=== PATIENT | male | born 1960 | race Caucasian/White ===

== ENCOUNTER 2024-10-26 10:49 | Outpatient (REF) | payer OTHER, SELFPAY ==
--- OUTSIDE RECORDS SUMMARY | 2024-10-27 12:09 | XMS_ITS | Clinical Summary ---
Author Organization [address] [facility] Address [address] [place] [address] Phone Care Team Providers Care Light Bulb Tester Name Role Phone Jamie Munguia MD Primary Care Provider [phone] Allergies Active Allergy Reactions Criticality Noted Date Comments Codeine Rash High 02/01/2019 Other Reaction(s): ITCHING AND CHEST TIGHTNESS Medications acetaminophen (TYLENOL 8 HOUR) 650 mg 8 hr tablet Take 1 Tablet by mouth 3 times daily as needed for Pain. 03/02/20 24 Active fluticasone propionate (FLONASE) 50 mcg/actuation nasal spray 1 [place] by Nasal route 2 times daily. 08/29/19 24 Active cetirizine (ZyrTEC) 10 mg tablet Take 1 Tablet by mouth at bedtime. 08/29/19 24 Active triamcinolone (KENALOG) 0.1 % cream Apply 1 Applicator topically 2 times daily. 08/29/19 24 Active cyclobenzaprine (FLEXERIL) 10 mg tablet Take 1 tablet (10 mg total) by mouth at bedtime as needed for muscle spasms. 30 tablet 2 07/27/19 25 Active gabapentin (NEURONTIN) 100 mg capsule Take 1 capsule (100 mg total) by mouth 2 (two) times a day. 60 capsule 3 07/27/19 25 Active Additional Information Patient not taking.Reported on 08/27/2024 fluticasone furoate-vilanteroL (BREO ELLIPTA) 100-25 mcg/dose inhaler Inhale 1 puff by mouth 1 (one) time each day. 1 each 3 07/27/19 25 Active albuterol HFA (PROAIR HFA ; PROVENTIL HFA ; VENTOLIN HFA) 90 mcg/actuation inhalerIndications :Mild persistent asthma without complication Inhale 2 puffs by mouth every 4 (four) hours if needed for wheezing. 6.7 g 3 07/27/19 25 Active oxyCODONE (ROXICODONE) 5 mg immediate release tabletIndications: Osteoarthritis of right hip, unspecified osteoarthritis type Take 1 tablet (5 mg total) by mouth 1 (one) time each day if needed for severe pain. Max Daily Amount: 5 mg 14 tablet 07/27/19 25 Active Additional Information Patient not taking.Reported on 08/27/2024 Active Problems Problem Noted Date Diagnosed Date Eczema 08/29/2023 Mild persistent asthma 08/29/2023 Seasonal allergic rhinitis 08/29/2023 Benign prostatic hyperplasia 01/23/2023 Mixed hyperlipidemia 01/23/2023 Obesity (BMI 30-39.9) 08/09/2019 Prediabetes 08/09/2019 Chronic pain of right knee 02/01/2019 Lumbar spondylosis 02/01/2019 Overview (04/09/2024): and mild spondylolisthesis L5-S1 Reactive airway disease 02/01/2019 Overview (04/09/2024): He notes pneumonia ~2015, notes he is susceptible to pneumonia, bronchitis Trochanteric bursitis, right hip 02/01/2019 Overview (04/09/2024): Dr Roque at [facility], bursal injection December 2016 Encounters Date Type Department Care Team Description 09/20/2024 Telephone Adult Medicine [address] [phone] Jamie Munguia MD office notes 08/27/2024 9:30 AM EST Office Visit Adult Medicine [address] [phone] Niki Cummings PA Osteoarthritis of right hip, unspecified osteoarthritis type (Primary Dx) from Last 3 Months Immunizations Name Administration Dates Next Due Influenza trivalent, 0.5mL, preservative free (Fluarix; FluLaval; Fluzone) ages 6mo and older (Afluria) 3 years and older 07/23/2019,03/25/2018 Pneumococcal polysaccharide 23 valent (Pneumovax 23) 2yo and older 08/09/2019 Tdap Tetanus diptheria acell ular pertussis (Boostrix; Adacel) 7yo and older 10/11/2022,09/25/2011 Surgical History Surgery Date Site/Laterality Comments KNEE SURGERY 01/01/2017 Right PROCEDURE: HISTORICAL KNEE SURGERY; COMMENT: arthroscopy; 2010 lateral meniscectomy, notse twice HERNIA REPAIR 2005 PROCEDURE: HISTORICAL HERNIA REPAIR/ING OTHER SURGICAL HISTORY PROCEDURE: HISTORY OTHER; COMMENT: cyst removal-left proximal forearm OTHER SURGICAL HISTORY 09/04/2018 PROCEDURE: HISTORY OTHER; COMMENT: benign lesion, over 4.0cm, lipoma Medical History Medical History Date Comments Depression, major, recurrent (CMS/HCC V24) 02/01/2019 DX:Depression, major, recurr ent ([facility]) Reactive airway disease 02/01/2019 DX:React tao airway disease Chronic pain of right knee 02/01/2019 DX:Ch ronic pain of right knee Trochanteric bursitis, right hip 02/01/2019 DX:Trochanteric bursitis, right hip; COMMENT: 09/2018 Lumbar spondylosis 02/01/2019 DX:Lumbar spo ndylosis; COMMENT: and mild spondylolisthesis L5-S1 BPH (benign prostatic hyperplasia) DX:BPH (benign prostatic hyperplasia) Family History Medical History Relation Name Comments Coronary artery disease Brother 1 1/2 bro Diabetes Brother 1 1/2 bro No Known Problems Brother 2 Blindness Father d/t brain tumor Coronary artery disease Maternal Grandfather s/p CABG No Known Problems Maternal Grandmother No Known Problems Mother Depression Sister 1/2 sis No Known Problems Son 1 No Known Problems Son 2 Relation Name Status Comments Brother 1 1/2 bro Alive Brother 2 Alive Father Alive Maternal Grandfather Maternal Grandmother Alive Mother Alive Sister 1/2 sis Alive Son 1 Alive Son 2 Alive Social History Tobacco Use Types Packs/Day Years Used Date Smoking Tobacco: Former Smokeless Tobacco: Never Tobacco Cessation:Counseling Given: Not Answered Alcohol Use Standard Drinks/Week Comments Yes 0 (1 standard drink = 0.6 oz pur e alcohol) Sex and Gender Information Value Date Recorded Sex Assigned at Not on file Legal Sex Male 7:02 PM EST Gender Identity Not on file Sexual Orientation Not on file Obstetrics History Last Filed Vital Signs Vital Sign Reading Time Taken Comments Blood Pressure 133/86 08/27/2024 9:28 AM EST Pulse 98 08/27/2024 9:28 AM EST Temperature 36.5 ??C (97.7 ??F) 08/27/2024 9:28 AM ES T Respiratory Rate 16 08/27/2024 9:28 AM EST Oxygen Saturation 94% 07/27/2024 3:39 PM EST Inhaled Oxygen Concentration - - Weight 87.5 kg (193 lb) 08/27/2024 9:28 AM EST Height 167.6 cm (5' 6 ) 08/27/2024 9:28 AM EST Body Mass Index 31.15 08/27/2024 9:28 AM EST Plan of Treatment Upcoming Encounters Date Type Department Care Team (Late st Contact Info) Description 12/27/2024 1:30 PM EDT Office Visit Adult Medicine [address] [phone] Jamie Munguia MD [address] [place] [id number] Health Maintenance Due Date Last Done Comments Zoster Vaccines (1 of 2) 2010 RSV Immunization Adult Patients (1 - Risk 60-74 years 1-dose series) 2020 Pneumococcal Vaccine: 50+ Years (2 of 2 - PCV) 08/09/2020 08/09/2019 Pneumococcal Vaccine: Pediatrics (0 to 5 Years) and At-Risk Patients (6 to 64 Years) (2 of 2 - PCV) 08/09/2020 08/09/2019 Colorectal Cancer Screening: Colonoscopy 06/01/2022 HIV Screening 06/01/2022 Depression Screening 10/12/2023 10/11/2022 COVID-19 Vaccine ( season) 2024 11/17/2020, 10/20/2020 Social Influencers of Health Screening 08/26/2024 08/27/2023 Influenza Vaccine (Season Ended) 2025 03/06/2020, 07/23/2019, 03/25/2018, Additional history exists Cholesterol Screening (Lipid Panel) 03/01/2029 03/01/2024, 03/01/2024 DTaP,Tdap,and Td Vaccines (3 - Td or Tdap) 10/11/2032 10/11/2022, 09/25/2011 Hepatitis C Screening Completed 02/15/2019 HIB Vaccines Aged Out No longer eligi ble based on patient's age to complete this topic HPV Vaccines Aged Out No longer eligi ble based on patient's age to complete this topic Hepatitis A Vaccines Aged Out No long er eligible based on patient's age to complete this topic Hepatitis B Vaccines Aged Out No long er eligible based on patient's age to complete this topic IPV Vaccines Aged Out No longer eligi ble based on patient's age to complete this topic MMR Vaccines Aged Out No longer eligi ble based on patient's age to complete this topic Meningococcal ACWY Vaccine Aged Out N o longer eligible based on patient's age to complete this topic Meningococcal B Vaccine Aged Out No l onger eligible based on patient's age to complete this topic RSV Immunization Patients Under 20 months Aged Out No longer eligible based on patient's age to complete this topic Varicella Vaccines Aged Out No longer eligible based on patient's age to complete this topic Procedures Procedure Name Priority Date/Time Associated Diagnosis Comments LIPID PANEL Routine 03/01/2024 HEPATITIS C SCREENING Routine 02/15/2019 from Last 3 Months or Most Recently Relevant to Health Maintenance Results * (ABNORMAL) Lipid panel (03/01/2024) LDL/HDL Ratio 5(A) 0 - 4 Triglycerides 195(A) 0 - 150 mg/dL Cholesterol 228(A) 0 - 200 mg/dL HDL 45 >=40 mg/dL LDL Cholesterol 144(A) 0 - 100 mg/dL Blood Venous blood specimen / Unknown us Historical Provider LAB BLOOD ORDERABLES Kimberlee l Result * Hepatitis C Screening (02/15/2019) Pathologist [facility] Hepatitis C Screening ABSTRACTED us Historical Provider HEALTH MAINTENANCE Final Result from Last 3 Months or Most Recently Relevant to Health Maintenance Insurance [facility] Care Teams Light Bulb Tester Relationship Specialty Start Date End Date Jamie Munguia MD [address] [place] [address] PCP - General Internal Medicine 12/18/21
--- OUTSIDE RECORDS SUMMARY | 2024-10-27 12:10 | XMS_ITS | Clinical Summary ---
Author Organization [facility] Address [address] [facility] [address] [place], [place] [id number] Phone Care Team Providers Care Traffic Operations Engineer Name Role Phone Jamie Munguia MD Primary Care Provider Allergies Active Allergy Reactions Criticality Noted Date Comments Codeine 01/04/2019 Medications Medication Sig Dispensed Refills Start Date End Date Status albuterol sulfate (PROAIR HFA INHL) Inhale into the lungs. Active Social History Tobacco Use Types Packs/Day Years Used Date Smoking Tobacco: Never Smokeless Tobacco: Never Education Answer Date Recorded Are you interested in more education? Not on amna e 10/18/2022 Are you concerned about learning? Not on file 10/18/2022 No 10/18/2022 No 10/18/2022 Digital Access Answer Date Recorded No 11/16/2022 No 11/16/2022 No 11/16/2022 Reliable internet access at home? Not on file 11/16/2022 Device with a working camera? Not on file Sex and Gender Information Value Date Recorded Sex Assigned at Male 04/06/2024 10:43 AM EDT Gender Identity Male 04/06/2024 10:43 AM EDT Sexual Orientation Straight 04/06/2024 10 :43 AM EDT Last Filed Vital Signs Vital Sign Reading Time Taken Comments Blood Pressure - - Pulse - - Temperature 36.4 ??C (97.6 ??F) 09/25/2020 11:08 AM E DT Respiratory Rate - - Oxygen Saturation - - Inhaled Oxygen Concentration - - Weight 85 kg (187 lb 4.8 oz) 01/04/2019 12:53 PM EDT Height 167.6 cm (5' 6 ) 01/04/2019 12:53 PM EDT Body Mass Index 30.23 01/04/2019 12:53 PM EDT Plan of Treatment Health Maintenance Due Date Last Done Comments LIPID PANEL 1960 DEPRESSION SCREENING 1972 HEPATITIS C SCREENING 1978 HIV ONE-TIME SCREENING (18-6 5 YEARS) 1978 COLOGUARD 2005 COLONOSCOPY 2005 COLORECTAL CANCER SCREENING 2005 FIT TEST 2005 FOBT 2005 SIGMOIDOSCOPY 2005 VIRTUAL COLONOSCOPY 2005 ZOSTER VACCINES (1 of 2) 2010 PNEUMOCOCCAL VACCINES (50+ years) (2 of 2 - PCV) 08/09/2020 08/09/2019 Adult Td,Tdap Booster 09/24/2021 09/25/2011 COVID-19 VACCINE (3 - 2023-2 5 season) 2024 11/17/2020, 10/20/2020 RSV VACCINE (1 - 1-dose 75+ series) 2035 SMOKING STATUS SCREENING (On ce After 26 Yrs) Completed 09/25/2020 HEPATITIS A VACCINES Aged Out No long er eligible based on patient's age to complete this topic HIB VACCINES Aged Out No longer eligi ble based on patient's age to complete this topic MENINGOCOCCAL VACCINES (ACWY) Aged Out No longer eligible based on patient's age to complete this topic Medical Devices Not on file Care Teams Traffic Operations Engineer Relationship Specialty Start Date End Date Jamie Munguia MD PCP - General Internal Medicine 04/06/24 Additional Source Comments The information contained in this document represents components of the legal health record. It is not the complete legal health record.[facility]
--- OUTSIDE RECORDS SUMMARY | 2024-10-27 12:11 | XMS_ITS | Data Portability ---
Author Organization [facility] Address [address] [place] [address] Care Team Providers Care Attorney Law Clerk Name Role Phone PADMA FELDMAN Primary Care Provider PADMA FELDMAN Referring Provider [phone] Assessment No assessment recorded. Plan of Treatment Reminders Order Date Submit Date Provider Last Modified By Organization Details Last Modified Time Details Appointments None record ed. Lab None record ed. Referral None record ed. Procedures None record ed. Surgeries None record ed. Imaging None record ed. Medication Orders None record ed. Patient TargetsNo targets recorded. Patient InstructionsNo instructions recorded. Reason for Referral None Reported. Results Created Date Observation Date Name Description Value Unit Range Abnormal Flag Note LastModifiedBy Organization Detail LastModifiedTime 09/24/19 18 MRI, knee, w/o contr ast No observ ation record ed. Not Available 2017 13:36:40 Result Notes None recorded. Procedures Surgical History Date Name Laterality Status Provider Name and Address Organization Details Recorded Time Knee Surgery completed Tessie Bunch [facility] 09/23/2017 13:39:32 Imaging Results Imaging Date Name Status LastModified by Organiz ation Details LastModified Time 09/23/2017 MRI, knee, w/o contrast completed [email or web address] Information not available 09/23/2017 13:36:40 Procedure Notes None recorded. Medical Equipment None Reported. Allergies No known drug allergies Medications Not known to be on any medication Vitals Date Recorded Body height Body mass index (BMI) Body weight Provider Name and Address Organization Details Last Updated DateTime 09/23/2017 167.64 cm 27.4 kg/m2 63203.7 g Tessie Bunch [facility] 09/23/2017 13:38:02 Date Recorded Body temperature Provider Name a ct Address Organization Details Last Updated DateTime 09/23/2017 97.8 [degF] [facility] 09/23/2017 14:16:40 Date Recorded Pain severity - 0-10 verbal numeric rating [Score] - Reported Provider Name and Address Organization Details Last Updated DateTime 09/23/2017 7 Not Available [employer] 8 05:59:06 Social History Question Answer Notes LastModified by Organizat ion Details LastModified Time Tobacco Smoking Status Current Some Day Smoker Tessie jernigan [place] - [facility] 09/23/2017 13:38:46 What Is Your Level Of Alcohol Consumption? Occasional [email or web address] Information not available 09/23/2017 Which Illicit Or Recreational Drugs Have You Used? Marijuana Information not available 09/23/2017 How Many Days In The Past Year Have You Had A Heavy Drinking Consumption (4+ Female, 5+ Male)? 0 [email or web address] Information no t available 09/23/2017 What Was The Date Of Your Most Recent Tobacco Screening? 09/23/2017 Information not available 01/13/2019 Has Tobacco Cessation Counseling Been Provided? Yes [email or web address] Information not available 09/23/2017 On What Date Was Tobacco Cessation Counseling Provided? 09/23/2017 [email or web address] Information not available 09/23/2017 Sex: Unknown Functional Status None recorded. Mental Status None recorded. Family History Relationship Description Onset Age of this Age Resolved Age Notes LastModified by Organization Details LastModified Time Brother Diabetes mellitus Not available 2017 13:38:34 Medical History Condition Response Coronary Artery Disease N Gout N Dyslipidemia N Artificial Joints N Thyroid Problems N Lung Disease N Depression N Pacemaker N Anemia N Back Pain Y Hearing Impairment N Anesthesia Complications Y Heart Attack ([place]) N Headaches/Migraines N Deep Vein Thrombosis N Anxiety Disorder N Diabetes N Bleeding Disorder N Arthritis N Seizures/Epilepsy N Cardiac Stent N Blood Clot N Tuberculosis N AIDS/HIV N Inflammatory Bowel Disease N Acid Reflux (GERD) N Cancer N Stroke N Substance Abuse N Peripheral Vascular Disease N Asthma/COPD Y Wears Glasses/Contacts N Hepatitis N Heart Disease N Organ Transplant N Rheumatoid Arthritis N Pulmonary Embolism N Fibromyalgia N Hypertension N Stomach Ulcer N Osteoporosis N Kidney Disease N Past Encounters Encounter ID Performer Location Encounter Start Date Encounter Closed Date Diagnosis/Indication Diagnosis SNOMED-CT Code Diagnosis ICD10 Code Diagnosis Note [id number] JAMMIE ARTEAGA MD [address] [place] [address] 09/23/2017 13:16:03 09/25/2017 14:51:44 Pain in right knee [id number] M25.561 MRI of the right knee from 06/10/2017 is reviewed. Postop changes about his meniscus noted. Some chondral injury about his lateral compartmen t noted. Patient with chronic right lower extremity pain. I do not believe that the MRI of his knee explains his pain syndrome. Rather, his pain is most likely referred from her low back/sciat ic problem. His prior MRIs of his lumbar spine have not documented disc or nerve pathology. I have suggested that he be evaluated at the spine service at the [facility]. I currently would not recommend any further physical therapy, injection therapy, or knee surgery. Health Concerns Section Related Observation LastModified by Organization Detai ls LastModified Time None Recorded Concern Status LastModified by Organization Details LastModified Time None Recorded Advance Directives Directive None Recorded Payers Insurance Date Sequence Insurance Name Policy Number Policy Velasco Covered Member ID Velasco Member ID Guarantor Name 09/30/2017 1 [place] [facility] Sincere Lockhart [id number] Sincere Lockhart Notes Date Note Type Note Provider Name and Address Organization Details Recorded Time 09/23/2017 text/html patient presents for second opinion regarding chronic right knee/leg pain. He states that he first developed pain while working in 1999. 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 Because of ongoing activity related knee pain he was evaluated in 2009. He underwent an arthroscopic surgery. He states that he never experienced improvement after that surgery. In 2013 he was evaluated with an MRI and advised conservative care for chronic knee pain. In 2016 he underwent a second knee arthroscopy. Despite extensive postoperative physical therapy, his knee pain returned when he tried to return to work. His most recent MRI was 06/10/2017 demonstrated postoperative changes about his menisci with some chondral changes laterally. He has a history of chronic low back pain. He is undergone MR imaging of his lumbar spine that demonstrates degenerative changes without jany herniation or nerve impingement. He has chronic right hip pain which has been diagnosed as sacroiliitis. He has been treated with physical therapy and cortisone injection without relief. He presents today complaining of pain extending from his low back down to his foot. Most of his pain is centered on his knee. He has pain anterior, medial, and lateral. He describes activity-related swelling. He has received a cortisone injection previously without relief. JAMMIE ARTEAGA MD [address] [place] [address],[address], [place], [address], [facility] 09/23/2017 15:09:31
== END 2024-10-26 10:50 | disposition home or self-care (01) ==
LOC: HO.HOSX 10:49
PROVIDERS: Visit Provider Orthopaedic Surgery
DX: Z13.89 Encounter for screening for other disorder (principal)